=== PATIENT | male | born 2000 | race Caucasian/White ===

== ENCOUNTER 2021-06-19 18:38 | Emergency (ER) | payer MEDICAID ==
[~2021-06-19] VITALS: Ht 167.6 cm; Wt 65.8 kg
--- NOTE | 2021-06-19 18:45 | NUR ---
Placed in room 6 . Placed on medical anthropology director, blood pressure machine and pulse oximeter. To gown for exam. Side rails up. Report given to LETICIA Hope.
[2021-06-19 18:47] VITALS: BP_SYST 155
--- NOTE | 2021-06-19 18:49 | NUR ---
RECEIVED AND IN ROOM, BIB MEDICS FROM HOME FOR DRUG USE. ADMID TO TAKING TWO TABS OF ACID AND SOME "WEED".
--- NOTE | 2021-06-19 18:53 | NUR ---
DR KIRKLAND IN TO ASSESS
[2021-06-19] MEDS ORDERED: NACL 0.9% 2,000 ML IV ONE (19:00)
--- NOTE | 2021-06-19 19:03 | NUR ---
MOTHER AT BEDSIDE, PT ANXIOUS AND ALERT, DENIES CP/SOB. SKIN WARM AND DRY
[2021-06-19] MEDS ORDERED: MAGNESIUM SULFATE 1 GM in NS 100 ML IV ONE (19:15)
--- NOTE | 2021-06-19 19:19 | NUR ---
Patients mom wanting to take son home now. Refusing medications. Dr. Hernandez at bedside taking with family.
--- NOTE | 2021-06-19 19:35 | NUR ---
# 20 gauge angiocath placed to RIGHT AC. Use of asceptic technique. Opsite placed over site. Blood return noted. Blood for lab drawn from site. Flushed with 10 cc of normal saline. No evidence of infiltration noted. Patient tolerated well.
[2021-06-19 19:53] LABS: BASOPHILS # (AUTO) 0.2 K/uL (0.0-0.2); BASOPHILS % (AUTO) 2.4 % (0.0-2.0); EOSINOPHILS # (AUTO) 0.3 K/uL (0.0-0.4); HEMATOCRIT 45.6 % (36-54); HEMOGLOBIN 15.8 g/dL (14.0-18.0); LYMPHOCYTES # (AUTO) 2.1 K/uL (1.0-5.5); LYMPHOCYTES % (AUTO) 24.7 % (20.5-51.5); MEAN CORPUSCULAR HEMOGLOBIN 32 pg (27-31); MEAN CORPUSCULAR HGB CONC 35 % (32-36); MEAN CORPUSCULAR VOLUME 92 fL (79.0-98.0); MONOCYTES # (AUTO) 0.4 K/uL (0.0-1.0); MONOCYTES % (AUTO) 4.8 % (1.7-9.3); NEUTROPHILS # (AUTO) 5.6 K/uL (1.8-7.7); NEUTROPHILS % (AUTO) 64.1 % (40.0-70.0); PLATELET COUNT (AUTO) 311 K/uL (130-430); RED BLOOD CELL COUNT(AUTO) 4.95 MIL/uL (4.2-6.2); RED CELL DISTRIBUTION WIDTH 13.2 % (9.0-15.0); WHITE BLOOD COUNT (AUTO) 8.7 K/uL (4.5-11.0)
[2021-06-19 20:06] LABS: ANION GAP 10 (5-15); CALCIUM 10.2 mg/dL (8.4-11.0); CHLORIDE 100 mmol/L (98-107); CREATININE 0.97 mg/dL (0.55-1.30); GLUCOSE 111 mg/dL (70-99); POTASSIUM 3.8 mmol/L (3.5-5.1); SODIUM SERUM 138 mmol/L (136-145); UREA NITROGEN, BLOOD 10 mg/dL (8-21)
[2021-06-19 20:09] LABS: GFR AFRICAN AMERICAN 128 mL/min (>90)
[2021-06-19 20:11] LABS: ACETAMINOPHEN < 1 ug/mL (1-30); ALANINE AMINOTRANSFERASE 28 U/L (12-78); ALBUMIN 4.7 g/dL (3.4-4.8); ASPARTATE AMINOTRANSFERASE 23 U/L (10-37); TOTAL BILIRUBIN 0.5 mg/dL (0.0-1.0)
[2021-06-19 20:12] LABS: ALCOHOL, BLOOD < 3 mg/dL (<10)
--- NOTE | 2021-06-19 20:46 | NUR ---
Patient resting quietly. No acute distress noted. Vital signs within normal range. Father at bedside
--- NOTE | 2021-06-19 21:02 | NUR ---
Patient ambulates to restroom with steady gait to obtain urine sample.
[2021-06-19 21:36] LABS: BARBITURATE, URINE NEGATIVE (NEG <=200); BENZODIAZEPINE, URINE NEGATIVE (NEG <=150); CANNABINOID, URINE POSITIVE (NEG <=50); COCAINE, URINE NEGATIVE (NEG <=150); METHAMPHETAMINES SCREEN,URINE NEGATIVE (NEG <=500); OPIATE, URINE NEGATIVE (NEG <=100); PHENCYCLIDINE SCREEN,URINE NEGATIVE (NEG <=25); UR TRICYCLIC ANTIDEPRESSANTS NEGATIVE (NEG <=300); URINE AMPHETAMINE NEGATIVE (NEG <=500); URINE METHADONE NEGATIVE (NEG <=200); URINE OXYCODONE SCREEN NEGATIVE (NEG <=100); URINE PROPOXYPHENE SCREEN NEGATIVE (NEG <=300)
[2021-06-19 22:23] VITALS: BP_SYST 137
== END 2021-06-19 22:23 | disposition home or self-care (01) ==
LOC: SED 18:38
DX: F16.129 Hallucinogen abuse with intoxication, unspecified (principal); F12.10 Cannabis abuse, uncomplicated; E86.0 Dehydration; R94.31 Abnormal electrocardiogram [ECG] [EKG]; Z79.899 Other long term (current) drug therapy
CPT/HCPCS: 36415; 80053; 80307; 83735; 84484; 85025; 93005; 96360; 99285; G0480; J7030; G0481; G0482